=== PATIENT | male | born 1990 | race African-American/Black ===

== ENCOUNTER 2020-08-05 02:27 | Emergency (ER) | payer OTHER ==
--- NOTE | 2020-08-05 03:27 | NUR ---
Pt refused to be triaged. Pt left er, ambulatory w/ steady gait and not in any apprent distress.
--- NOTE | 2020-08-05 03:27 | NUR ---
Dm esposito in [facility] - 08/05/20 at 0328 by GONZALES Pt refused to be triaged
[2020-08-05] MEDS ORDERED: OLAN10TA3 PO (09:22)
[2020-08-05] MEDS ORDERED: QUET300T2 PO (09:23)
[2020-08-05] MEDS ORDERED: TRAZ150T75 PO (09:23)
[2020-08-05] MEDS ORDERED: DIVA500T4 PO (09:25)
== END 2020-08-05 03:29 | disposition left against medical advice (07) ==
LOC: ER 02:32
DX: Z53.21 Procedure and treatment not carried out due to patient leaving prior to being seen by health care provider (principal)

== ENCOUNTER 2020-08-05 09:03 | Emergency (ER) | payer OTHER ==
[~2020-08-05] VITALS: Ht 193 cm; Wt 74.8 kg
[2020-08-05 09:18] VITALS: BP 135/75
[2020-08-05] MEDS ORDERED: OLAN10TA3 PO (09:22)
[2020-08-05] MEDS ORDERED: TRAZ150T75 PO (09:23)
[2020-08-05] MEDS ORDERED: QUET300T2 PO (09:23)
[2020-08-05] MEDS ORDERED: DIVA500T4 PO (09:25)
== END 2020-08-05 09:41 | disposition home or self-care (01) ==
LOC: ER 09:08
DX: F11.10 Opioid abuse, uncomplicated (principal); E11.9 Type 2 diabetes mellitus without complications; F17.200 Nicotine dependence, unspecified, uncomplicated; Z60.2 Problems related to living alone; Z79.899 Other long term (current) drug therapy